=== PATIENT | male | born 1970 | race Caucasian/White ===

== ENCOUNTER 2019-10-03 08:53 | Outpatient (RCR) | payer OTHER, SELFPAY | END 2020-01-01 23:59 | disposition home or self-care (01) | LOC: ANHDMC 08:53 | PROVIDERS: PCP Internal Medicine; Visit Provider Surgery | DX: E11.65 Type 2 diabetes mellitus with hyperglycemia (principal); Z71.89 Other specified counseling | CPT/HCPCS: G0108 ==

== ENCOUNTER 2019-11-30 19:48 | Emergency (ER) | payer OTHER, SELFPAY ==
--- NOTE | ~2019-11-30 | XR_ITS ---
EXAMINATION: XR chest 2V 11/30/2019 20:18 INDICATION: Mid chest pain. PROCEDURE: 2 view chest COMPARISON: No prior studies for comparison. FINDINGS: The lungs are clear. Calcified right paratracheal lymph node, consistent with chronic granu lomatous disease. The cardiomediastinal silhouette is within normal limits. There are no pleural eff usions. There is no pneumothorax suspected. IMPRESSION: 1: NO ACUTE CARDIOPULMONARY DISEASE. Reviewed, dictated and finalized at location A. [employer]
[2019-11-30 19:56] VITALS: BP 166/94; PULSE 77; RESP 20; TEMP 36.8; O2SAT 98
--- NOTE | 2019-11-30 19:57 | ED.CHESTPAIN ---
HPI - Chest Pain General Chief Complaint: Chest Pain Stated Complaint: CP Time Seen by Provider: 11/30/19 19:56 History of Present Illness HPI narrative: The pt is a 49 y/o male who presents to the ED with c/o CP that began 3.5 hours ago. The pt states that his pain began while this evening taking a nap. The pain is located at the substernal area, is described as a pressure, and is currently rated a 5/10. The pt tried walking, ASA, TUMS, and water with baking soda without relief of sx. He notes that he has had this pain 3-4 times before but it has never lasted this long and he has never seen a doctor about it. The pt reports sweats but denies SOB. He has a PMHx of DM II and kidney stones, and notes that he had a very busy night at work yesterday. MD complaint: chest pain Onset (ago): hour(s) (3.5) Prior episodes: Yes (3-4) Onset: during rest Pain location: substernal Severity: moderate Pain scale (0-10): 5 Quality: other (pressure) Relieving factors: nothing Associated symptoms: diaphoresis Related Data Allergies Allergy/AdvReac Type Severity Reaction Status Date / Time No Known Allergies Allergy Unverified 12/25/15 11:21 Review of Systems Review of Systems: All systems reviewed & are unremarkable except as noted in HPI and below Cardiovascular: Cardiovascular: Reports chest pain and Reports other (sweats) Respiratory: Respiratory: Denies dyspnea PMFSH Past Medical History Medical History Bursitis GERD (gastroesophageal reflux disease) Kidney stone Periumbilical hernia Type II diabetes mellitus Surgical History Surgical History History of tonsillectomy Family History Family History Father Hypertension Family history of heart disease in male family member before age 55 Mother Patient's mother is in good health Family history of heart disease in male family member before age 55 Grandparent Diabetes mellitus Other Family history of arthritis Family history of malignant neoplasm Social History Social History Smoking status: Former smoker Smoking end date: 10/30/00 Alcohol intake: current Gender identity (if verbalized by the patient): Female Exam Const: General: healthy appearing and no acute distress Nutritional Appearance: well nourished HENMT: Mouth: Yes lip normal and Yes moist mucous membranes Eyes: Conjunctivae: conjunctivae normal Pupils: Equal, round and reactive pupils present Resp: Effort & Inspection: normal respiratory effort Auscultation: clear to auscultation bilaterally Cardio: Rate: regular rate Rhythm: regular rhythm GI: GI Palp: Yes Soft to palpation and Yes Tenderness to palpation present (GI) (epigastric) Auscultation: normal bowel sounds Back/Spine/Pelvis: Back: other (full ROM) Skin: General skin exam: normal color, dry skin and other (warm) Neuro: General: patient oriented x3 Speech: normal speech Extrem: General: full ROM Psych: Mental Status: mental status grossly normal Affect: normal affect Course Vital Signs Vital signs: Vital Signs Temperature 36.8 C 11/30/19 19:56 Pulse Rate 77 11/30/19 19:56 Respiratory Rate 20 11/30/19 19:56 Blood Pressure 166/94 H 11/30/19 19:56 Pulse Oximetry 98 11/30/19 19:56 Temperature 36.8 C 11/30/19 19:56 Pulse Rate 62 12/01/19 00:20 Respiratory Rate 19 12/01/19 00:20 Blood Pressure 121/69 12/01/19 00:20 Pulse Oximetry 98 12/01/19 00:20 MDM - Chest Pain MDM Narrative Medical decision making narrative: Pain seemed most likely GI in origin. Pain resolved and he had multiple episodes nausea without pain. EKG was normal and troponin was negative x2. The pain did return prior to discharging the patient and I was planning to evaluate him for gall bladder dis
--- NOTE | 2019-11-30 19:58 | ECG_ITS ---
Measurements Intervals [place] Rate: 73 P: 55 NE: 153 QRS: 46 QRSD: 97 T: 45 QT: 377 QTc: 416 Interpretive Statements SINUS RHYTHM EARLY PRECORDIAL R/S TRANSITION BASELINE ARTIFACT- V4-V6 BORDERLINE ECG Electronically Signed On 12-01-2019 7:56:03 [employer] by Aquiles Lincoln D.O.
[2019-11-30 20:05] LABS: Basophils Percent Auto 0.3 % (0.2-1.2); Eosinophils Absolute Auto 0.1 K/mm3 (0-0.3); Eosinophils Percent Auto 1.2 % (0-4.4); Hematocrit 46.3 % (42.0-52.0); Hemoglobin 15.4 g/dL (14.0-18.0); Immature Granulocyte Absolute 0.03 K/mm3 (0.00-0.031); Immature Granulocyte Percent A 0.3 % (0-0.5); Lymphocytes Absolute Auto 2.32 K/mm3 (0.9-3.2); Lymphocytes Percent Auto 24.7 % (18.3-44.2); Mean Corpuscular HGB Conc 33.3 g/dl (32-36); Mean Corpuscular Hemoglobin 29.9 pg (26-34); Mean Corpuscular Volume 89.9 fl (80-100); Mean Platelet Volume 9.4 fl (7.4-10.4); Monocytes Absolute Auto 0.4 K/mm3 (0.1-0.6); Monocytes Percent Auto 3.8 % (2.6-8.5); Neutrophils Absolute Auto 6.5 K/mm3 (1.3-6.7); Neutrophils Percent Auto 69.7 % (45.5-73.1); Platelet Count Result 244 k/mm3 (150-375); Red Blood Count 5.15 M/mm3 (4.6-6.20); Red Cell Distribution Width 13.1 % (11.5-14.5); White Blood Count 9.4 K/mm3 (4.5-10.0)
[2019-11-30 20:09] VITALS: PULSE 68
[2019-11-30 20:15] LABS: INR 0.9; Prothrombin Time 12.2 Seconds (11.1-14.7)
[2019-11-30 20:16] LABS: Partial Thromboplastin Time 33.2 SECONDS (22.3-36.8)
[2019-11-30 20:17] LABS: Blood Urea Nitrogen 21 mg/dL (9-20); Calcium 9.9 mg/dL (8.4-10.2); Carbon Dioxide 28 mmol/L (22-30); Chloride 97 mmol/L (98-107); Estimated Glomerular Filt Rate > 60; Glucose 165 mg/dL (75-110); Potassium 4.2 mmol/L (3.4-5.0); Sodium 136 mmol/L (137-145)
[2019-11-30] MEDS: NITROGLYCERIN SL 0.4 MG TABLET SUBLINGUAL (20:19)
--- NOTE | 2019-11-30 20:22 | PC.NURSE ---
2019 0.4 MG NITRO ADMINISTERED SUBLINGUAL BP 155/91 PAIN AT A 6 2024 0.4 MG NITRO ADMINISTERED SUBLINGUAL BP 125/86 PAIN AT A 5 2029 PT REPORTS CP AT A 5 PT'S BLOOD PRESSURE IS 125/75. PT REFUSING THIRD NITRO. EDP NOTIFIED.
[2019-11-30 20:29] LABS: Troponin I < 0.012 ng/mL (0.000-0.034)
[2019-11-30] MEDS: ONDANSETRON INJ 4 MG/2 ML VIAL IV PUSH (22:00)
[2019-11-30 22:05] VITALS: BP 124/75; PULSE 67; RESP 12; O2SAT 98
[2019-11-30 23:29] LABS: Troponin I < 0.012 ng/mL (0.000-0.034)
[2019-11-30] MEDS: METOCLOPRAMIDE HCL INJ 10 MG/2 ML VIAL IV PUSH (23:52)
[2019-11-30] MEDS: PANTOPRAZOLE SODIUM IV 40 MG VIAL IV PUSH (23:52)
[2019-12-01 00:20] VITALS: BP 121/69; PULSE 62; RESP 19; O2SAT 98
== END 2019-12-01 00:20 | disposition home or self-care (01) ==
PROVIDERS: Emergency Provider Emergency Medicine; PCP Internal Medicine
DX: R10.13 Epigastric pain (principal); K21.9 Gastro-esophageal reflux disease without esophagitis; Z87.442 Personal history of urinary calculi; E11.9 Type 2 diabetes mellitus without complications; Z87.891 Personal history of nicotine dependence; R94.31 Abnormal electrocardiogram [ECG] [EKG]
CPT/HCPCS: 36415; 71046; 80048; 84484; 85025; 85610; 85730; 93005; 96374; 96375; 99284; A9270; C9113; J2405; J2765; J3010

== ENCOUNTER 2020-08-11 10:40 | Outpatient (CLI) | payer OTHER, SELFPAY ==
--- NOTE | ~2020-08-11 | XR_ITS ---
EXAMINATION: XR knee RT min 4V DATE: 08/11/2020 11:08 INDICATION: Right knee pain and swelling. TECHNIQUE: Weight bearing anteroposterior and Tena, sunrise, and flexed lateral views of the rig ht knee were obtained COMPARISON: None. FINDINGS: Alignment is normal. No fracture. Tiny marginal osteophytes in all 3 compartments with normal joint space consistent with minimal osteoarthritis. No joint effusion/layering lipohemarthrosis. Mild prepa tellar soft tissue swelling. IMPRESSION: 1. Minimal tricompartmental osteoarthritis at the right knee. Reviewed, dictated and finalized at location B.
[2020-08-11 11:28] LABS: Basophils Percent Auto 0.4 % (0.2-1.2); Eosinophils Absolute Auto 0.2 K/mm3 (0-0.3); Eosinophils Percent Auto 1.6 % (0-4.4); Hematocrit 45.9 % (42.0-52.0); Hemoglobin 15.8 g/dL (14.0-18.0); Immature Granulocyte Absolute 0.06 K/mm3 (0.00-0.031); Immature Granulocyte Percent A 0.7 % (0-0.5); Lymphocytes Absolute Auto 2.52 K/mm3 (0.9-3.2); Lymphocytes Percent Auto 27.7 % (18.3-44.2); Mean Corpuscular HGB Conc 34.4 g/dl (32-36); Mean Corpuscular Hemoglobin 31.2 pg (26-34); Mean Corpuscular Volume 90.7 fl (80-100); Mean Platelet Volume 8.9 fl (7.4-10.4); Monocytes Absolute Auto 0.6 K/mm3 (0.1-0.6); Monocytes Percent Auto 6.4 % (2.6-8.5); Neutrophils Absolute Auto 5.8 K/mm3 (1.3-6.7); Neutrophils Percent Auto 63.2 % (45.5-73.1); Platelet Count Result 253 k/mm3 (150-375); Red Blood Count 5.06 M/mm3 (4.6-6.20); Red Cell Distribution Width 12.7 % (11.5-14.5); White Blood Count 9.1 K/mm3 (4.5-10.0)
[2020-08-11 11:46] LABS: CRP 2.4 mg/dL (<1.0); Uric Acid 4.4 mg/dL (3.5-8.5)
== END 2020-08-11 10:41 | disposition home or self-care (01) ==
PROVIDERS: PCP Internal Medicine; Visit Provider Internal Medicine
DX: M25.561 Pain in right knee (principal)
CPT/HCPCS: 36415; 73564; 84550; 85025; 86140

== ENCOUNTER → 2022-07-05 10:09 | Outpatient (CLI) | payer OTHER, SELFPAY ==
--- NOTE | ~2022-07-05 | US_ITS ---
EXAMINATION: US scrotum doppler DATE: 07/05/2022 10:46 INDICATION: Anterior left scrotal lump TECHNIQUE: Testicular sonogram utilizing grayscale and Doppler COMPARISON: None. FINDINGS: The right testis measures 4.1 x 2.2 x 2.7 cm. The left testis measures 3.4 x 2.2 x 2.6 cm. Symmetric normal grayscale appearance to both testes. There is normal vascular flow to both testes. The right e pididymis is normal with normal vascular flow. The left epididymis is normal with normal vascular nuha w. There is no varicocele or hydrocele. IMPRESSION: 1. Normal scrotal ultrasound. Reviewed, dictated and finalized at location A.
== END ==
PROVIDERS: PCP Student in an Organized Health Care Education/Training Program; Visit Provider Student in an Organized Health Care Education/Training Program
DX: N50.89 Other specified disorders of the male genital organs (principal)
CPT/HCPCS: 76870; 93976